=== PATIENT | male | born 1960 | race Caucasian/White ===

== ENCOUNTER 2023-05-24 19:34 | Observation (INO) | payer MEDICARE, MEDICAID ==
[2023-05-24 20:16] LABS: #Basophils 0.1 10x3/uL (0.0-0.2); #Eosinphils 0.3 10x3/uL (0.0-0.5); #Monocytes 0.4 10x3/uL (0.0-1.1); #Neutrophils 2.2 10x3/uL (1.5-8.4); %Basophils 1.4 % (0.0-2.0); %Eosinophils 6.9 % (0.0-6.0); %Monocytes 8.7 % (0.0-10.0); Hematocrit 32.6 % (38.8-50.0); Hemoglobin 10.6 g/dL (13.5-17.5); Mean Corpuscular HGB CONC 32.5 g/dL (32.0-36.0); Mean Corpuscular Hemoglobin 33.1 pg (27.0-33.0); Mean Corpuscular Volume 101.9 fl (81.2-95.1); Mean Platelet Volume 10.7 fl (7.4-10.4); Platelet Count 151 10x3/uL (150-450); RBC Distribution Width 13.2 % (11.5-14.5); White Blood Cell (WBC) Count 4.4 10x3/uL (3.5-10.5)
[2023-05-24 20:43] LABS: ALT (SGPT) 13 U/L (8-55); AST (SGOT) 18 U/L (5-34); Albumin 3.7 g/dL (3.4-4.8); Alkaline Phosphatase 54 U/L (40-110); Anion Gap 10 mmol/L (10-20); BUN (Urea Nitrogen) 46 mg/dL (8.4-25.7); Bilirubin, Total 0.3 mg/dL (0.2-1.2); Calc. Creatinine Clearance 0 mL/min (70-130); Calcium 8.6 mg/dL (7.8-10.44); Carbon Dioxide 28 mmol/L (23-31); Chloride 115 mmol/L (98-107); Estimated GFR 96; Globulin 2.4 g/dL (2.4-3.5); Glucose 101 mg/dL (80-115); Lipase 40 U/L (8-78); Potassium 3.4 mmol/L (3.5-5.1); Protein, Total 6.1 g/dL (5.8-8.1); Sodium 150 mmol/L (136-145)
[2023-05-24 20:50] LABS: Troponin I Less than 0.010 ng/mL (< 0.028)
[2023-05-24 21:39] LABS: Bilirubin Neg (Negative); Blood, Urine Negative (Negative); Clarity Clear (Clear); Glucose, Urine (Dipstick) Normal (Negative); Ketone, Urine 5 mg/dL (Negative); Leukocyte Negative (Negative); Nitrite Negative (Negative); Protein, Urine (Dipstick) 30 mg/dl (Neg-Trace)
[2023-05-24 22:01] LABS: Bacteria/HPF None Seen HPF (None Seen); CAUTI Indications for Culture Alt mental st,lethar; Mucous/LPF Rare LPF (<2+); RBC/HPF 0-3 HPF (0-3); Squamous Epithelial 0-3 HPF (0-3); WBC/HPF 0-3 HPF (0-3)
[2023-05-24 22:02] LABS: Urine Culture Reflex No No
[2023-05-24] MEDS ORDERED: Ondansetron PF 4 MG/2 ML Vial IVP PRN (22:37)
[2023-05-24] MEDS ORDERED: Acetaminophen 650 MG Suppository PR PRN (22:37)
[2023-05-24] MEDS ORDERED: Acetaminophen 325 MG TAB PO PRN (22:37)
[2023-05-24] MEDS ORDERED: Dextrose 50% Abboject 50 ML SYRINGE SLOW IVP PRN (22:37)
[2023-05-24] MEDS ORDERED: Senokot S 8.6-50 MG TAB PO PRN (22:37)
[2023-05-24] MEDS ORDERED: Calcium Carbonate 500 MG ChewTAB PO PRN (22:37)
[2023-05-24] MEDS ORDERED: Glucagon 1 MG/ML KIT IM PRN (22:37)
[2023-05-24] MEDS ORDERED: Dextrose 5% in Water 1,000 ML IV PRN (22:37)
[2023-05-24] MEDS ORDERED: HumaLOG 300 UNITS/3 ML VIAL SC PRN (22:37)
[2023-05-24] MEDS ORDERED: Dextrose 5% in Water 1,000 ML IV SCH (22:45)
[2023-05-25] MEDS ORDERED: Potassium Chloride 20 MEQ in Premix 1 BAG IVPB SCH (00:15)
[2023-05-25] MEDS ORDERED: Potassium Chloride 20 MEQ TAB PO SCH (00:15)
[2023-05-25] MEDS ORDERED: Haloperidol Lactate 5 MG/ML VIAL IM SCH (01:45)
[2023-05-25 05:40] LABS: Anion Gap 11 mmol/L (10-20); BUN (Urea Nitrogen) 35 mg/dL (8.4-25.7); CK (CPK) 145 U/L (30-200); Calc. Creatinine Clearance 112 mL/min (70-130); Calcium 8.8 mg/dL (7.8-10.44); Carbon Dioxide 25 mmol/L (23-31); Chloride 114 mmol/L (98-107); Estimated GFR 102; Glucose 78 mg/dL (80-115); Magnesium 2.1 mg/dL (1.6-2.6); Potassium 4.2 mmol/L (3.5-5.1); Sodium 146 mmol/L (136-145)
[2023-05-25] MEDS ORDERED: Aspirin Chewable 81 MG TAB PO SCH (09:00)
[2023-05-25] MEDS ORDERED: Tamsulosin HCl 0.4 MG CAP PO SCH (09:00)
[2023-05-25] MEDS ORDERED: Multivit, Therapeutic 1 TAB PO SCH (09:00)
[2023-05-25 11:13] LABS: Anion Gap 11 mmol/L (10-20); BUN (Urea Nitrogen) 25 mg/dL (8.4-25.7); Calc. Creatinine Clearance 120 mL/min (70-130); Calcium 8.8 mg/dL (7.8-10.44); Carbon Dioxide 27 mmol/L (23-31); Chloride 108 mmol/L (98-107); Estimated GFR 104; Glucose 92 mg/dL (80-115); Sodium 142 mmol/L (136-145)
[2023-05-25 16:37] VITALS: BP 122/83; TEMP 97.4
[2023-05-25] MEDS ORDERED: Atorvastatin Calcium 40 MG TAB PO SCH (21:00)
== END 2023-05-25 16:54 ==
LOC: CSHERS 19:34 → CSHTELE 22:37
PROVIDERS: ADMIT Student in an Organized Health Care Education/Training Program; ATTEND Nurse Practitioner Family
DX: E11.00 Type 2 diabetes mellitus with hyperosmolarity without nonketotic hyperglycemic-hyperosmolar coma (NKHHC) (principal); G93.41 Metabolic encephalopathy; E87.6 Hypokalemia; N40.0 Benign prostatic hyperplasia without lower urinary tract symptoms; R79.89 Other specified abnormal findings of blood chemistry; D64.9 Anemia, unspecified; E78.5 Hyperlipidemia, unspecified; Z79.82 Long term (current) use of aspirin; Z86.73 Personal history of transient ischemic attack (TIA), and cerebral infarction without residual deficits; Z95.0 Presence of cardiac pacemaker; Z79.899 Other long term (current) drug therapy
CPT/HCPCS: 36415; 36416; 51701; 70450; 71045; 80048; 80053; 81001; 82550; 83605; 83690; 83735; 84443; 84484; 85025; 94760; 96360; 96372; G0378; J1630; J1650; J3480; J7070

== ENCOUNTER 2023-05-26 12:43 | Emergency (ER) | payer MEDICARE, MEDICAID ==
[2023-05-26 13:17] LABS: #Eosinphils 0.2 10x3/uL (0.0-0.5); #Monocytes 0.4 10x3/uL (0.0-1.1); #Neutrophils 3.6 10x3/uL (1.5-8.4); %Basophils 0.4 % (0.0-2.0); %Eosinophils 3.6 % (0.0-6.0); %Lymphocytes 19.5 % (18.0-47.0); %Monocytes 7.4 % (0.0-10.0); %Neutrophils 68.9 % (40.0-75.0); Hematocrit 35.1 % (38.8-50.0); Hemoglobin 11.7 g/dL (13.5-17.5); Mean Corpuscular HGB CONC 33.3 g/dL (32.0-36.0); Mean Corpuscular Volume 98.9 fl (81.2-95.1); Mean Platelet Volume 10.9 fl (7.4-10.4); Platelet Count 152 10x3/uL (150-450); RBC Distribution Width 12.9 % (11.5-14.5); Red Blood Cell (RBC) Count 3.55 10x6/uL (4.32-5.72); White Blood Cell (WBC) Count 5.3 10x3/uL (3.5-10.5)
[2023-05-26 13:27] LABS: ALT (SGPT) 11 U/L (8-55); AST (SGOT) 20 U/L (5-34); Albumin 3.6 g/dL (3.4-4.8); Alkaline Phosphatase 61 U/L (40-110); Anion Gap 12 mmol/L (10-20); BUN (Urea Nitrogen) 23 mg/dL (8.4-25.7); Bilirubin, Total 0.7 mg/dL (0.2-1.2); Calc. Creatinine Clearance 0 mL/min (70-130); Calcium 8.5 mg/dL (7.8-10.44); Carbon Dioxide 24 mmol/L (23-31); Chloride 110 mmol/L (98-107); Estimated GFR 101; Globulin 2.3 g/dL (2.4-3.5); Glucose 112 mg/dL (80-115); Magnesium 1.7 mg/dL (1.6-2.6); Potassium 3.7 mmol/L (3.5-5.1); Protein, Total 5.9 g/dL (5.8-8.1); Sodium 142 mmol/L (136-145)
[2023-05-26 14:31] LABS: Actual Bicarbonate (HCO3v) 21.8 mEq/L (22-28); Base Excess -2.9 mEq/L (-2 - +2); Calcium, Ionized (venous) 1.11 mmol/L (1.16-1.32); Chloride (VBG) 106 mmol/L (98-106); Hematocrit-VBG 36 % (42.0-52.0); Hemoglobin (Hb) 12.4 g/dL (13.1-17.2); Potassium (VBG) 3.68 mmol/L (3.70-5.30); Puncture Site Other Site; RapidComm Collect By cbn; Sodium 141 mmol/L (133-146); pH (venous) 7.377 (7.32-7.43)
[2023-05-26 14:53] LABS: Bilirubin Neg (Negative); Blood, Urine Negative (Negative); Clarity Clear (Clear); Glucose, Urine (Dipstick) Normal (Negative); Ketone, Urine 5 mg/dL (Negative); Leukocyte 25 (Negative); Nitrite Negative (Negative); Protein, Urine (Dipstick) 30 mg/dl (Neg-Trace); Specific Gravity, Urine 1.025 (1.005-1.030)
[2023-05-26 15:02] LABS: Bacteria/HPF None Seen HPF (None Seen); CAUTI Indications for Culture Alt mental st,lethar; RBC/HPF None Seen HPF (0-3); Squamous Epithelial 0-3 HPF (0-3); WBC/HPF 0-3 HPF (0-3)
[2023-05-26 15:03] LABS: Urine Culture Reflex No No
[2023-05-26 15:22] LABS: Troponin I Less than 0.010 ng/mL (< 0.028)
== END 2023-05-26 15:47 | disposition home or self-care (01) ==
LOC: CSHERS 12:43
DX: R55 Syncope and collapse (principal); E11.9 Type 2 diabetes mellitus without complications; I10 Essential (primary) hypertension
CPT/HCPCS: 36415; 71045; 80053; 81001; 82805; 83735; 84484; 85025; 93005; 93010; 96360

== ENCOUNTER 2023-05-29 12:38 | Inpatient (IN) | payer MEDICARE, MEDICAID ==
[2023-05-29 13:58] LABS: #Eosinphils 0.3 10x3/uL (0.0-0.5); #Monocytes 0.4 10x3/uL (0.0-1.1); #Neutrophils 3.5 10x3/uL (1.5-8.4); %Basophils 0.7 % (0.0-2.0); %Eosinophils 5.6 % (0.0-6.0); %Lymphocytes 22.4 % (18.0-47.0); %Monocytes 7.1 % (0.0-10.0); %Neutrophils 63.8 % (40.0-75.0); Hematocrit 32.9 % (38.8-50.0); Mean Corpuscular HGB CONC 33.4 g/dL (32.0-36.0); Mean Corpuscular Hemoglobin 33.7 pg (27.0-33.0); Mean Corpuscular Volume 100.9 fl (81.2-95.1); Mean Platelet Volume 11.3 fl (7.4-10.4); Platelet Count 150 10x3/uL (150-450); RBC Distribution Width 13.1 % (11.5-14.5); Red Blood Cell (RBC) Count 3.26 10x6/uL (4.32-5.72); White Blood Cell (WBC) Count 5.5 10x3/uL (3.5-10.5)
[2023-05-29 14:11] LABS: ALT (SGPT) 12 U/L (8-55); AST (SGOT) 17 U/L (5-34); Albumin 3.7 g/dL (3.4-4.8); Alkaline Phosphatase 60 U/L (40-110); Anion Gap 12 mmol/L (10-20); BUN (Urea Nitrogen) 29 mg/dL (8.4-25.7); Bilirubin, Total 0.4 mg/dL (0.2-1.2); Calc. Creatinine Clearance 0 mL/min (70-130); Calcium 8.8 mg/dL (7.8-10.44); Carbon Dioxide 26 mmol/L (23-31); Chloride 110 mmol/L (98-107); Estimated GFR 100; Globulin 2.2 g/dL (2.4-3.5); Glucose 95 mg/dL (80-115); Protein, Total 5.9 g/dL (5.8-8.1); Sodium 144 mmol/L (136-145)
[2023-05-29 14:14] LABS: Bilirubin Neg (Negative); Blood, Urine Negative (Negative); Clarity Clear (Clear); Glucose, Urine (Dipstick) Normal (Negative); Ketone, Urine 15 mg/dL (Negative); Leukocyte 25 (Negative); Nitrite Negative (Negative); Protein, Urine (Dipstick) 15 mg/dl (Neg-Trace)
[2023-05-29 14:46] LABS: Bacteria/HPF Rare-Few HPF (None Seen); CAUTI Indications for Culture Alt mental st,lethar; RBC/HPF None Seen HPF (0-3); Squamous Epithelial 0-3 HPF (0-3); WBC/HPF 0-3 HPF (0-3)
[2023-05-29 14:47] LABS: Urine Culture Reflex No No
[2023-05-29] MEDS ORDERED: Ondansetron PF 4 MG/2 ML Vial IVP PRN (17:36)
[2023-05-29] MEDS ORDERED: Acetaminophen 325 MG TAB PO PRN (17:36)
[2023-05-29] MEDS ORDERED: Glucagon 1 MG/ML KIT IM PRN (18:16)
[2023-05-29] MEDS ORDERED: Dextrose 5% in Water 1,000 ML IV PRN (18:16)
[2023-05-29] MEDS ORDERED: Dextrose 50% Abboject 50 ML SYRINGE SLOW IVP PRN (18:16)
[2023-05-29] MEDS ORDERED: HumaLOG 300 UNITS/3 ML VIAL SC PRN ×2 (18:16)
[2023-05-29 20:01] VITALS: BMI 29.0
[2023-05-29] MEDS: Atorvastatin Calcium 40 MG TAB PO SCH (21:15)
[2023-05-29 21:50] LABS: Hemoglobin A1c 5.5 % (4.0-6.0)
[2023-05-30 05:32] LABS: #Basophils 0.1 10x3/uL (0.0-0.2); #Eosinphils 0.5 10x3/uL (0.0-0.5); #Monocytes 0.4 10x3/uL (0.0-1.1); #Neutrophils 2.1 10x3/uL (1.5-8.4); %Eosinophils 9.8 % (0.0-6.0); %Lymphocytes 37.3 % (18.0-47.0); %Monocytes 8.6 % (0.0-10.0); %Neutrophils 43.1 % (40.0-75.0); Hematocrit 34.1 % (38.8-50.0); Hemoglobin 11.4 g/dL (13.5-17.5); Mean Corpuscular HGB CONC 33.4 g/dL (32.0-36.0); Mean Corpuscular Hemoglobin 33.1 pg (27.0-33.0); Mean Corpuscular Volume 99.1 fl (81.2-95.1); Platelet Count 156 10x3/uL (150-450); RBC Distribution Width 12.9 % (11.5-14.5); Red Blood Cell (RBC) Count 3.44 10x6/uL (4.32-5.72); White Blood Cell (WBC) Count 4.9 10x3/uL (3.5-10.5)
[2023-05-30 05:48] LABS: Anion Gap 14 mmol/L (10-20); BUN (Urea Nitrogen) 22 mg/dL (8.4-25.7); Calc. Creatinine Clearance 119 mL/min (70-130); Calcium 8.8 mg/dL (7.8-10.44); Carbon Dioxide 24 mmol/L (23-31); Cardiac Risk 2.7 (Less than 4.5); Chloride 107 mmol/L (98-107); Cholesterol 118 mg/dl (< 200 Desired); Estimated GFR 103; Glucose 124 mg/dL (80-115); HDL Cholesterol 43 mg/dL (>60 Neg Risk); LDL Cholesterol, Calculated 64 mg/dL; Potassium 3.3 mmol/L (3.5-5.1); Sodium 142 mmol/L (136-145); Triglycerides 56 mg/dL (Less than 150)
[2023-05-30] MEDS ORDERED: PAROXETINE HCL 10 MG PO SCH (09:00)
[2023-05-30] MEDS: Tamsulosin HCl 0.4 MG CAP PO SCH (09:37)
[2023-05-30] MEDS: Divalproex Sodium 500 MG ER.TAB PO SCH (09:37)
[2023-05-30] MEDS: Aspirin 81 mg Enteric Coated Tablet PO SCH (09:37)
[2023-05-30] MEDS: Donepezil HCl 5 MG TAB PO SCH (09:37)
[2023-05-30] MEDS: Atorvastatin Calcium 40 MG TAB PO SCH (21:55)
[2023-05-31 04:18] LABS: #Basophils 0.1 10x3/uL (0.0-0.2); #Eosinphils 0.3 10x3/uL (0.0-0.5); #Monocytes 0.6 10x3/uL (0.0-1.1); #Neutrophils 3.4 10x3/uL (1.5-8.4); %Basophils 0.9 % (0.0-2.0); %Eosinophils 4.6 % (0.0-6.0); %Lymphocytes 23.8 % (18.0-47.0); %Monocytes 10.4 % (0.0-10.0); %Neutrophils 59.9 % (40.0-75.0); Hematocrit 35.6 % (38.8-50.0); Hemoglobin 12.5 g/dL (13.5-17.5); Mean Corpuscular HGB CONC 35.1 g/dL (32.0-36.0); Mean Corpuscular Hemoglobin 33.6 pg (27.0-33.0); Mean Corpuscular Volume 95.7 fl (81.2-95.1); Mean Platelet Volume 11.3 fl (7.4-10.4); Platelet Count 180 10x3/uL (150-450); RBC Distribution Width 12.7 % (11.5-14.5); Red Blood Cell (RBC) Count 3.72 10x6/uL (4.32-5.72); White Blood Cell (WBC) Count 5.6 10x3/uL (3.5-10.5)
[2023-05-31 04:28] LABS: Anion Gap 16 mmol/L (10-20); BUN (Urea Nitrogen) 19 mg/dL (8.4-25.7); Calc. Creatinine Clearance 124 mL/min (70-130); Calcium 9.2 mg/dL (7.8-10.44); Carbon Dioxide 22 mmol/L (23-31); Chloride 107 mmol/L (98-107); Estimated GFR 104; Glucose 92 mg/dL (80-115); Potassium 3.5 mmol/L (3.5-5.1); Sodium 141 mmol/L (136-145)
[2023-05-31] MEDS: Divalproex Sodium 500 MG ER.TAB PO SCH (09:50)
[2023-05-31] MEDS: Aspirin 81 mg Enteric Coated Tablet PO SCH (09:50)
[2023-05-31] MEDS: Tamsulosin HCl 0.4 MG CAP PO SCH (09:50)
[2023-05-31] MEDS: Donepezil HCl 5 MG TAB PO SCH (09:50)
[2023-05-31] MEDS: PARoxetine 20 MG TAB PO SCH (11:56)
[2023-05-31] MEDS ORDERED: PARoxetine 20 MG TAB PO SCH (12:00)
[2023-05-31] MEDS: Atorvastatin Calcium 40 MG TAB PO SCH (21:20)
[2023-06-01 05:07] LABS: Anion Gap 11 mmol/L (10-20); BUN (Urea Nitrogen) 25 mg/dL (8.4-25.7); Calc. Creatinine Clearance 121 mL/min (70-130); Calcium 8.9 mg/dL (7.8-10.44); Carbon Dioxide 28 mmol/L (23-31); Chloride 103 mmol/L (98-107); Estimated GFR 103; Glucose 86 mg/dL (80-115); Potassium 3.2 mmol/L (3.5-5.1); Sodium 139 mmol/L (136-145)
[2023-06-01 05:17] LABS: #Basophils 0.1 10x3/uL (0.0-0.2); #Eosinphils 0.4 10x3/uL (0.0-0.5); #Monocytes 0.5 10x3/uL (0.0-1.1); #Neutrophils 2.6 10x3/uL (1.5-8.4); %Eosinophils 8.1 % (0.0-6.0); %Lymphocytes 32.4 % (18.0-47.0); %Monocytes 8.9 % (0.0-10.0); %Neutrophils 49.4 % (40.0-75.0); Hematocrit 36.4 % (38.8-50.0); Hemoglobin 12.5 g/dL (13.5-17.5); Mean Corpuscular HGB CONC 34.3 g/dL (32.0-36.0); Mean Corpuscular Hemoglobin 33.2 pg (27.0-33.0); Mean Corpuscular Volume 96.6 fl (81.2-95.1); Platelet Count 174 10x3/uL (150-450); RBC Distribution Width 12.8 % (11.5-14.5); Red Blood Cell (RBC) Count 3.77 10x6/uL (4.32-5.72); White Blood Cell (WBC) Count 5.2 10x3/uL (3.5-10.5)
[2023-06-01] MEDS: Donepezil HCl 5 MG TAB PO SCH (08:38)
[2023-06-01] MEDS: PARoxetine 20 MG TAB PO SCH (08:38)
[2023-06-01] MEDS: Tamsulosin HCl 0.4 MG CAP PO SCH (08:39)
[2023-06-01] MEDS: Divalproex Sodium 500 MG ER.TAB PO SCH (08:39)
[2023-06-01] MEDS: Aspirin 81 mg Enteric Coated Tablet PO SCH (08:39)
[2023-06-01] MEDS ORDERED: Potassium Chloride 20 MEQ TAB PO SCH (13:00)
[2023-06-01] MEDS: Atorvastatin Calcium 40 MG TAB PO SCH (20:17)
[2023-06-01] MEDS ORDERED: Divalproex Sodium 250 MG (DR) TAB PO SCH (21:00)
[2023-06-01] MEDS ORDERED: Ziprasidone 20 MG VIAL IM SCH (21:00)
[2023-06-01] MEDS ORDERED: Sterile Water 10 ML ONE (21:51)
[2023-06-02 04:01] LABS: Anion Gap 12 mmol/L (10-20); BUN (Urea Nitrogen) 30 mg/dL (8.4-25.7); Calc. Creatinine Clearance 112 mL/min (70-130); Calcium 8.7 mg/dL (7.8-10.44); Carbon Dioxide 27 mmol/L (23-31); Chloride 108 mmol/L (98-107); Estimated GFR 101; Glucose 83 mg/dL (80-115); Potassium 3.7 mmol/L (3.5-5.1); Sodium 143 mmol/L (136-145)
[2023-06-02 04:10] LABS: #Basophils 0.1 10x3/uL (0.0-0.2); #Eosinphils 0.4 10x3/uL (0.0-0.5); #Monocytes 0.7 10x3/uL (0.0-1.1); #Neutrophils 3.5 10x3/uL (1.5-8.4); %Basophils 0.8 % (0.0-2.0); %Lymphocytes 25.1 % (18.0-47.0); %Monocytes 11.4 % (0.0-10.0); %Neutrophils 55.1 % (40.0-75.0); Hematocrit 36.2 % (38.8-50.0); Hemoglobin 12.2 g/dL (13.5-17.5); Mean Corpuscular HGB CONC 33.7 g/dL (32.0-36.0); Mean Corpuscular Hemoglobin 33.2 pg (27.0-33.0); Mean Corpuscular Volume 98.4 fl (81.2-95.1); Mean Platelet Volume 11.3 fl (7.4-10.4); Platelet Count 164 10x3/uL (150-450); RBC Distribution Width 12.9 % (11.5-14.5); Red Blood Cell (RBC) Count 3.68 10x6/uL (4.32-5.72); White Blood Cell (WBC) Count 6.3 10x3/uL (3.5-10.5)
[2023-06-02] MEDS: PARoxetine 20 MG TAB PO SCH (09:59)
[2023-06-02] MEDS: Divalproex Sodium 500 MG ER.TAB PO SCH (10:00)
[2023-06-02] MEDS: Aspirin 81 mg Enteric Coated Tablet PO SCH (10:00)
[2023-06-02] MEDS: Tamsulosin HCl 0.4 MG CAP PO SCH (10:00)
[2023-06-02] MEDS: QUEtiapine 25 MG TAB PO SCH ×2 (10:01→20:25)
[2023-06-02] MEDS: Valproate Sodium 250 mg/5 ml UD Cup PO SCH (20:24)
[2023-06-02] MEDS: Atorvastatin Calcium 40 MG TAB PO SCH (20:25)
[2023-06-02] MEDS ORDERED: Sterile Water 10 ML ONE (21:12)
[2023-06-02] MEDS ORDERED: Ziprasidone 20 MG VIAL IM SCH (21:15)
[2023-06-03 04:04] LABS: Anion Gap 12 mmol/L (10-20); BUN (Urea Nitrogen) 26 mg/dL (8.4-25.7); Calc. Creatinine Clearance 112 mL/min (70-130); Calcium 8.9 mg/dL (7.8-10.44); Carbon Dioxide 28 mmol/L (23-31); Chloride 104 mmol/L (98-107); Estimated GFR 101; Glucose 85 mg/dL (80-115); Potassium 3.8 mmol/L (3.5-5.1); Sodium 140 mmol/L (136-145)
[2023-06-03 04:14] LABS: #Basophils 0.1 10x3/uL (0.0-0.2); #Eosinphils 0.5 10x3/uL (0.0-0.5); #Monocytes 0.6 10x3/uL (0.0-1.1); #Neutrophils 2.9 10x3/uL (1.5-8.4); %Basophils 0.8 % (0.0-2.0); %Eosinophils 7.6 % (0.0-6.0); %Lymphocytes 33.6 % (18.0-47.0); %Monocytes 9.6 % (0.0-10.0); %Neutrophils 48.1 % (40.0-75.0); Hematocrit 37.5 % (38.8-50.0); Hemoglobin 12.7 g/dL (13.5-17.5); Mean Corpuscular HGB CONC 33.9 g/dL (32.0-36.0); Mean Corpuscular Hemoglobin 33.5 pg (27.0-33.0); Mean Corpuscular Volume 98.9 fl (81.2-95.1); Mean Platelet Volume 11.3 fl (7.4-10.4); Platelet Count 184 10x3/uL (150-450); Red Blood Cell (RBC) Count 3.79 10x6/uL (4.32-5.72); White Blood Cell (WBC) Count 6.1 10x3/uL (3.5-10.5)
[2023-06-03] MEDS: Valproate Sodium 250 mg/5 ml UD Cup PO SCH ×3 (09:28→21:08)
[2023-06-03] MEDS: Aspirin Chewable 81 MG TAB PO SCH (09:29)
[2023-06-03] MEDS: Tamsulosin HCl 0.4 MG CAP PO SCH (09:29)
[2023-06-03] MEDS ORDERED: Cyanocobalamin (Vitamin B-12) 1,000 MCG TAB PO SCH (09:30)
[2023-06-03] MEDS: PARoxetine 20 MG TAB PO SCH (09:30)
[2023-06-03] MEDS: Thiamine HCl 200 MG/2 ML VIAL SLOW IVP SCH (09:30)
[2023-06-03] MEDS: QUEtiapine 25 MG TAB PO SCH ×2 (09:31→21:08)
[2023-06-03] MEDS: Atorvastatin Calcium 40 MG TAB PO SCH (21:08)
[2023-06-04] MEDS ORDERED: Haloperidol Lactate 5 MG/ML VIAL IM SCH (01:45)
[2023-06-04] MEDS ORDERED: Lorazepam 2 MG/ML VIAL IM SCH (04:15)
[2023-06-04] MEDS ORDERED: Ziprasidone 20 MG VIAL IM SCH (07:15)
[2023-06-04] MEDS ORDERED: Sterile Water 10 ML VIAL FS PRN (07:15)
[2023-06-04] MEDS: Thiamine HCl 200 MG/2 ML VIAL SLOW IVP SCH (09:07)
[2023-06-04] MEDS: Tamsulosin HCl 0.4 MG CAP PO SCH (09:25)
[2023-06-04] MEDS: Cyanocobalamin (Vitamin B-12) 1,000 MCG TAB PO SCH (09:26)
[2023-06-04] MEDS: Valproate Sodium 250 mg/5 ml UD Cup PO SCH ×3 (09:26→21:51)
[2023-06-04] MEDS: PARoxetine 20 MG TAB PO SCH (09:26)
[2023-06-04] MEDS: QUEtiapine 25 MG TAB PO SCH ×2 (09:26→21:51)
[2023-06-04] MEDS: Atorvastatin Calcium 40 MG TAB PO SCH (21:51)
[2023-06-05] MEDS: Cyanocobalamin (Vitamin B-12) 1,000 MCG TAB PO SCH (08:44)
[2023-06-05] MEDS: Aspirin Chewable 81 MG TAB PO SCH (08:44)
[2023-06-05] MEDS: PARoxetine 20 MG TAB PO SCH (08:45)
[2023-06-05] MEDS: QUEtiapine 25 MG TAB PO SCH ×2 (08:45→21:20)
[2023-06-05] MEDS: Tamsulosin HCl 0.4 MG CAP PO SCH (08:45)
[2023-06-05] MEDS: Valproate Sodium 250 mg/5 ml UD Cup PO SCH ×3 (08:45→21:20)
[2023-06-05] MEDS: Thiamine HCl 200 MG/2 ML VIAL SLOW IVP SCH (08:59)
[2023-06-05] MEDS: Atorvastatin Calcium 40 MG TAB PO SCH (21:20)
[2023-06-06 06:46] LABS: #Basophils 0.1 10x3/uL (0.0-0.2); #Eosinphils 0.5 10x3/uL (0.0-0.5); #Monocytes 0.7 10x3/uL (0.0-1.1); #Neutrophils 4.2 10x3/uL (1.5-8.4); %Eosinophils 7.3 % (0.0-6.0); %Lymphocytes 19.7 % (18.0-47.0); %Monocytes 9.6 % (0.0-10.0); Hematocrit 37.6 % (38.8-50.0); Hemoglobin 13.2 g/dL (13.5-17.5); Mean Corpuscular HGB CONC 35.1 g/dL (32.0-36.0); Mean Corpuscular Hemoglobin 33.4 pg (27.0-33.0); Mean Corpuscular Volume 95.2 fl (81.2-95.1); Mean Platelet Volume 10.9 fl (7.4-10.4); Platelet Count 229 10x3/uL (150-450); RBC Distribution Width 12.6 % (11.5-14.5); Red Blood Cell (RBC) Count 3.95 10x6/uL (4.32-5.72); White Blood Cell (WBC) Count 6.7 10x3/uL (3.5-10.5)
[2023-06-06 06:53] LABS: Anion Gap 15 mmol/L (10-20); BUN (Urea Nitrogen) 26 mg/dL (8.4-25.7); Calc. Creatinine Clearance 111 mL/min (70-130); Calcium 9.3 mg/dL (7.8-10.44); Carbon Dioxide 23 mmol/L (23-31); Chloride 107 mmol/L (98-107); Estimated GFR 100; Glucose 98 mg/dL (80-115); Potassium 3.9 mmol/L (3.5-5.1); Sodium 141 mmol/L (136-145)
[2023-06-06] MEDS: Aspirin Chewable 81 MG TAB PO SCH ×2 (09:13→09:14)
[2023-06-06] MEDS: QUEtiapine 25 MG TAB PO SCH (09:13)
[2023-06-06] MEDS: Tamsulosin HCl 0.4 MG CAP PO SCH (09:13)
[2023-06-06] MEDS: Cyanocobalamin (Vitamin B-12) 1,000 MCG TAB PO SCH (09:13)
[2023-06-06] MEDS: PARoxetine 20 MG TAB PO SCH (09:13)
[2023-06-06] MEDS: Thiamine 100 MG TAB PO SCH (09:13)
[2023-06-06] MEDS: Valproate Sodium 250 mg/5 ml UD Cup PO SCH ×3 (09:14→20:38)
[2023-06-06] MEDS: QUEtiapine 100 MG TAB PO SCH (20:22)
[2023-06-06] MEDS: Atorvastatin Calcium 40 MG TAB PO SCH (20:22)
[2023-06-07] MEDS: PARoxetine 20 MG TAB PO SCH (08:35)
[2023-06-07] MEDS: Tamsulosin HCl 0.4 MG CAP PO SCH (08:35)
[2023-06-07] MEDS: Cyanocobalamin (Vitamin B-12) 1,000 MCG TAB PO SCH (08:35)
[2023-06-07] MEDS: Valproate Sodium 250 mg/5 ml UD Cup PO SCH ×3 (08:36→20:42)
[2023-06-07] MEDS: QUEtiapine 100 MG TAB PO SCH ×2 (08:36→20:34)
[2023-06-07] MEDS: Thiamine 100 MG TAB PO SCH (08:36)
[2023-06-07] MEDS: Aspirin Chewable 81 MG TAB PO SCH (08:36)
[2023-06-07] MEDS: Atorvastatin Calcium 40 MG TAB PO SCH (20:34)
[2023-06-07] MEDS ORDERED: Haloperidol Lactate 5 MG/ML VIAL IM SCH (22:30)
[2023-06-08] MEDS ORDERED: Haloperidol Lactate 5 MG/ML VIAL IM SCH (05:00)
[2023-06-08] MEDS: QUEtiapine 100 MG TAB PO SCH ×2 (10:27→21:31)
[2023-06-08] MEDS: Valproate Sodium 250 mg/5 ml UD Cup PO SCH ×3 (10:27→21:31)
[2023-06-08] MEDS: Aspirin Chewable 81 MG TAB PO SCH (10:28)
[2023-06-08] MEDS: Tamsulosin HCl 0.4 MG CAP PO SCH (10:28)
[2023-06-08] MEDS: Cyanocobalamin (Vitamin B-12) 1,000 MCG TAB PO SCH (10:28)
[2023-06-08] MEDS: Thiamine 100 MG TAB PO SCH (10:28)
[2023-06-08] MEDS: PARoxetine 20 MG TAB PO SCH (10:28)
[2023-06-09] MEDS: QUEtiapine 100 MG TAB PO SCH ×2 (08:34→22:12)
[2023-06-09] MEDS: Valproate Sodium 250 mg/5 ml UD Cup PO SCH ×3 (08:34→22:12)
[2023-06-09] MEDS: Tamsulosin HCl 0.4 MG CAP PO SCH (08:34)
[2023-06-09] MEDS: Aspirin Chewable 81 MG TAB PO SCH (08:35)
[2023-06-09] MEDS: PARoxetine 20 MG TAB PO SCH (08:35)
[2023-06-09] MEDS: Thiamine 100 MG TAB PO SCH (08:35)
[2023-06-09] MEDS: Cyanocobalamin (Vitamin B-12) 1,000 MCG TAB PO SCH (08:35)
[2023-06-09] MEDS: Atorvastatin Calcium 40 MG TAB PO SCH (22:12)
[2023-06-10 04:38] LABS: Hematocrit 40.3 % (38.8-50.0); Hemoglobin 13.4 g/dL (13.5-17.5); Mean Corpuscular HGB CONC 33.3 g/dL (32.0-36.0); Mean Corpuscular Hemoglobin 32.5 pg (27.0-33.0); Mean Corpuscular Volume 97.8 fl (81.2-95.1); Mean Platelet Volume 11.2 fl (7.4-10.4); Platelet Count 205 10x3/uL (150-450); RBC Distribution Width 12.8 % (11.5-14.5); Red Blood Cell (RBC) Count 4.12 10x6/uL (4.32-5.72); White Blood Cell (WBC) Count 5.6 10x3/uL (3.5-10.5)
[2023-06-10 04:44] LABS: Anion Gap 14 mmol/L (10-20); BUN (Urea Nitrogen) 25 mg/dL (8.4-25.7); Calc. Creatinine Clearance 124 mL/min (70-130); Calcium 8.9 mg/dL (7.8-10.44); Carbon Dioxide 25 mmol/L (23-31); Chloride 106 mmol/L (98-107); Estimated GFR 104; Glucose 77 mg/dL (80-115); Potassium 4.1 mmol/L (3.5-5.1); Sodium 141 mmol/L (136-145)
[2023-06-10] MEDS: QUEtiapine 100 MG TAB PO SCH (08:55)
[2023-06-10] MEDS: Thiamine 100 MG TAB PO SCH (08:55)
[2023-06-10] MEDS: Cyanocobalamin (Vitamin B-12) 1,000 MCG TAB PO SCH (08:55)
[2023-06-10] MEDS: Aspirin Chewable 81 MG TAB PO SCH (08:55)
[2023-06-10] MEDS: PARoxetine 20 MG TAB PO SCH (08:55)
[2023-06-10] MEDS: Valproate Sodium 250 mg/5 ml UD Cup PO SCH ×2 (08:55→16:13)
[2023-06-10] MEDS: Tamsulosin HCl 0.4 MG CAP PO SCH (08:55)
[2023-06-10 17:44] VITALS: BP 90/55; TEMP 97.8
== END 2023-06-10 17:51 | DRG 884 ==
LOC: CSHERS 12:38 → INTOOBSV 18:45 → CSHTELE 18:45 → OBSVTOIN 06-01 12:58
PROVIDERS: ADMIT Internal Medicine; ATTEND Internal Medicine
PROC: 0T9B70Z Drainage of Bladder with Drainage Device, Via Natural or Artificial Opening (ICD-10-PCS; principal; 2023-06-01)
PROC: 4A00X4Z Measurement of Central Nervous Electrical Activity, External Approach (ICD-10-PCS; 2023-06-01)
DX: F03.92 Unspecified dementia, unspecified severity, with psychotic disturbance (principal); G92.8 Other toxic encephalopathy; F23 Brief psychotic disorder; R47.01 Aphasia; N39.0 Urinary tract infection, site not specified; E87.0 Hyperosmolality and hypernatremia; E11.9 Type 2 diabetes mellitus without complications; I10 Essential (primary) hypertension; E78.5 Hyperlipidemia, unspecified; N40.0 Benign prostatic hyperplasia without lower urinary tract symptoms; D64.9 Anemia, unspecified; D75.89 Other specified diseases of blood and blood-forming organs; Z86.73 Personal history of transient ischemic attack (TIA), and cerebral infarction without residual deficits; Z95.0 Presence of cardiac pacemaker; Z79.82 Long term (current) use of aspirin; Z79.899 Other long term (current) drug therapy; Z98.890 Other specified postprocedural states; Z82.49 Family history of ischemic heart disease and other diseases of the circulatory system; Z78.1 Physical restraint status
CPT/HCPCS: 36415; 36416; 70450; 71045; 80048; 80053; 80061; 80164; 81001; 82607; 83036; 83605; 84443; 85025; 85027; 93005; 93306; 94760; 95816; 95819; 95957; J1630; J2060; J3486

== ENCOUNTER 2023-11-24 19:00 | Emergency (ER) | payer MEDICARE, MEDICAID ==
[2023-11-24] MEDS ORDERED: Haloperidol Lactate 5 MG/ML VIAL ONE (19:27)
[2023-11-24 21:17] LABS: Bilirubin Neg (Negative); Blood, Urine 50 (Negative); Clarity Slightly Cloudy (Clear); Glucose, Urine (Dipstick) Normal (Negative); Ketone, Urine 5 mg/dL (Negative); Leukocyte Negative (Negative); Nitrite Negative (Negative); Protein, Urine (Dipstick) Negative (Neg-Trace); Specific Gravity, Urine 1.025 (1.005-1.030)
[2023-11-24 21:25] LABS: Bacteria/HPF None Seen HPF (None Seen); CAUTI Indications for Culture Alt mental st,lethar; RBC/HPF 0-3 HPF (0-3); Squamous Epithelial None Seen HPF (0-3); WBC/HPF 0-3 HPF (0-3)
[2023-11-24 21:26] LABS: Urine Culture Reflex No No
[2023-11-24 21:45] LABS: #Basophils 0.05 10x3/uL (0.0-0.2); #Eosinphils 0.21 10x3/uL (0.0-0.5); #Monocytes 0.58 10x3/uL (0.0-1.1); %Basophils 0.8 % (0.0-2.0); %Eosinophils 3.3 % (0.0-6.0); %Lymphocytes 29.1 % (18.0-47.0); %Monocytes 9.2 % (0.0-10.0); %Neutrophils 57.3 % (40.0-75.0); Hematocrit 32.5 % (38.8-50.0); Hemoglobin 11.3 g/dL (13.5-17.5); Mean Corpuscular HGB CONC 34.8 g/dL (32.0-36.0); Mean Corpuscular Hemoglobin 34.7 pg (27.0-33.0); Mean Corpuscular Volume 99.7 fl (81.2-95.1); Mean Platelet Volume 10.9 fl (7.4-10.4); Platelet Count 151 10x3/uL (150-450); RBC Distribution Width 13.2 % (11.5-14.5); Red Blood Cell (RBC) Count 3.26 10x6/uL (4.32-5.72); White Blood Cell (WBC) Count 6.3 10x3/uL (3.5-10.5)
[2023-11-24 21:55] LABS: ALT (SGPT) 19 U/L (8-55); AST (SGOT) 23 U/L (5-34); Albumin 3.7 g/dL (3.4-4.8); Alkaline Phosphatase 79 U/L (40-110); Anion Gap 13 mmol/L (10-20); BUN (Urea Nitrogen) 30 mg/dL (8.4-25.7); Bilirubin, Total 0.4 mg/dL (0.2-1.2); Calc. Creatinine Clearance 0 mL/min (70-130); Calcium 9.2 mg/dL (7.8-10.44); Carbon Dioxide 28 mmol/L (23-31); Chloride 106 mmol/L (98-107); Estimated GFR 86; Globulin 2.8 g/dL (2.4-3.5); Glucose 98 mg/dL (80-115); Potassium 4.4 mmol/L (3.5-5.1); Protein, Total 6.5 g/dL (5.8-8.1); Sodium 143 mmol/L (136-145)
== END 2023-11-24 22:57 | disposition home or self-care (01) ==
LOC: CSHERS 19:00
DX: Z04.3 Encounter for examination and observation following other accident (principal); F03.90 Unspecified dementia, unspecified severity, without behavioral disturbance, psychotic disturbance, mood disturbance, and anxiety; I10 Essential (primary) hypertension; E11.9 Type 2 diabetes mellitus without complications; Z87.891 Personal history of nicotine dependence
CPT/HCPCS: 36415; 51701; 70450; 72125; 80053; 81001; 85025; 96374; J1630